=== PATIENT | male | born 2000 | race Caucasian/White ===

== ENCOUNTER 2023-05-09 13:27 | Outpatient (CLI) | payer BC, OTHER | END 2023-05-09 13:28 | disposition home or self-care (01) | LOC: MADRAD 13:27 | PROVIDERS: ATTEND Physician Assistant | DX: M54.2 Cervicalgia (principal); M54.50 Low back pain, unspecified; M54.6 Pain in thoracic spine; M43.8X2 Other specified deforming dorsopathies, cervical region; M41.9 Scoliosis, unspecified | CPT/HCPCS: 72050; 72070; 72100 ==